=== PATIENT | male | born 1980 | race Caucasian/White ===

== ENCOUNTER → 2018-08-18 | Outpatient (CLI) | payer MEDICARE, OTHER ==
[~2018-08-18] MED LIST: BENZ2 PO; CLOT1TL TOP; DIVA500EC PO; HYDACE5 PO; HYDCHL25 PO; LEVSOD50 PO; OXCA150 PO; ZIPR80 PO
== END | disposition home or self-care (01) ==
LOC: LAB SHORT 11:47 → LAB 11:47
DX: L02.612 Cutaneous abscess of left foot (principal)
CPT/HCPCS: 87070; 87077; 87147; 87186; 87205